=== PATIENT | male | born 1950 | race Caucasian/White ===

== ENCOUNTER 2023-05-23 05:56 | Inpatient (IN) ==
[~2023-05-23 05:56] MED LIST: HYDROmorphone 1 MG/1 ML SYRINGE IV PRN; Naloxone 0.4 mg VIAL 0.4 mg/ml 1 ml VIAL IV PRN; Ondansetron 4 mg VIAL 2 MG/ML 2 ml VIAL IV PRN; fentaNYL 100 mcg/2 ml 50 MCG/ML VIAL IV PRN
[2023-05-23] MEDS ORDERED: Buffered Lidocaine 1% SYRIN 1 ml INTRADERM ONE (06:00)
[2023-05-23] MEDS ORDERED: Lactated Ringers 1000 ml BAG 1,000 ML IV SCH (06:00)
[2023-05-23] MEDS ORDERED: ceFAZolin 2 GM PREMIX 2 GM/50 ML BAG ONE (06:13)
[2023-05-23] MEDS ORDERED: Lidocaine 2% PF 5 ML VIAL ONE (06:40)
[2023-05-23] MEDS ORDERED: Ondansetron 4 mg VIAL 2 MG/ML 2 ml VIAL ONE (06:40)
[2023-05-23] MEDS ORDERED: Midazolam 2 mg/2 ml VIAL 1 mg/ml 2 ml VIAL (2 mg) ONE (06:40)
[2023-05-23] MEDS ORDERED: Phenylephrine IV 10 MG/ML 1 ml VIAL ONE (06:40)
[2023-05-23] MEDS ORDERED: Dexamethasone IV 4 MG/ML VIAL 1 ml VIAL ONE (06:40)
[2023-05-23] MEDS ORDERED: Acetaminophen IV 1 GM/100ML 0 MG/0 ML BAG IV ONE (06:40)
[2023-05-23] MEDS ORDERED: Propofol 10 MG/ML 20 ML BTL ONE ×2 (06:40→09:02)
[2023-05-23] MEDS ORDERED: Bupivacaine 0.5% PF 10 ML SDV VIAL INJ ONE (06:40)
[2023-05-23] MEDS ORDERED: fentaNYL 100 mcg/2 ml 50 MCG/ML VIAL ONE (06:40)
[2023-05-23] MEDS ORDERED: ROPIVACAINE 5 MG/ML 30 ML BTL (0.5%) ONE (06:45)
[2023-05-23 07:09] LABS: Rapid COVID-19 Molecular Undetected (Undetected)
[2023-05-23] MEDS ORDERED: Sterile Water for Inj 10 ML ONE (08:05)
[2023-05-23] MEDS ORDERED: Magnesium Hydroxide LIQ 30 ML UDC PO PRN (10:25)
[2023-05-23] MEDS ORDERED: Ondansetron 4 mg VIAL 2 MG/ML 2 ml VIAL IV PRN (10:25)
[2023-05-23] MEDS ORDERED: Lactulose 30 ml UDC PO PRN (10:25)
[2023-05-23] MEDS ORDERED: Morphine 2 MG/ML SYRINGE IV PRN (10:25)
[2023-05-23] MEDS ORDERED: Ondansetron ODT 4 mg TAB 4 MG TAB PO PRN (10:25)
[2023-05-23] MEDS: Lactated Ringers 1000 ml BAG 1,000 ML IV SCH ×2 (11:25→22:19)
[2023-05-23] MEDS: ceFAZolin 1 GM ADVAN 1 GM in NS 0.9% 50 ML 50 ML IVPB SCH (15:38)
[2023-05-23] MEDS: Magnesium Hydroxide LIQ 30 ML UDC PO SCH (20:10)
[2023-05-24] MEDS: ceFAZolin 1 GM ADVAN 1 GM in NS 0.9% 50 ML 50 ML IVPB SCH ×2 (00:21→08:57)
[2023-05-24 06:38] LABS: Hematocrit 38.2 % (38-53); Hemoglobin 12.9 g/dL (13.2-16.3); Mean Platelet Volume 8.5 fL (7.5-11.2); Platelet Count 256 10^3/uL (150-450)
[2023-05-24 06:55] LABS: Calcium 8.5 mg/dL (8.6-10.3); Creatinine, Serum 1.06 mg/dL (0.67-1.17); Potassium 4.6 mmol/L (3.5-5.0); eGFR CKD-EPI 75.5 (>60)
[2023-05-24] MEDS ORDERED: Vitamin THERAPEUTIC TAB PO SCH (09:00)
[2023-05-24] MEDS ORDERED: CMC:Pravastatin 20 mg TAB (NF) PO SCH (09:00)
[2023-05-24] MEDS: Magnesium Hydroxide LIQ 30 ML UDC PO SCH (09:00)
[2023-05-24 10:39] VITALS: BP 120/77
== END 2023-05-24 13:30 | disposition home or self-care (01) | DRG 301 ==
LOC: INTOOBSV 05:56 → AA 05:56 → OBSVTOIN 10:25 → SSU 11:17
PROVIDERS: ADMIT Orthopaedic Surgery Adult Reconstructive Orthopaedic Surgery; ATTEND Orthopaedic Surgery Adult Reconstructive Orthopaedic Surgery